=== PATIENT | male | born 1960 | race African-American/Black ===

== ENCOUNTER 2017-05-06 14:03 | Emergency (ER) | payer OTHER ==
[~2017-05-06] VITALS: Ht 182.9 cm; Wt 90.0 kg
[~2017-05-06 14:03] MED LIST: AMLO-512 PO; ASPI81 PO
[2017-05-06 14:05] VITALS: BP 0/0
[2017-05-06] MEDS ORDERED: SODIUM BICARBONATE [ADULT] 8.4% 50 MEQ/50 ML SYRINGE IVP ONE (14:05)
[2017-05-06] MEDS ORDERED: EPINEPHrine 1:10,000 [1 MG/10 ML] SYRINGE IVP ONE (14:05)
[2017-05-06] MEDS ORDERED: ETOMIDATE 2 MG/ML 10 ML VIAL IV ONE (14:05)
[2017-05-06] MEDS ORDERED: SUCCINYLCHOLINE CHLORIDE 20 MG/ML 10 ML VIAL IM ONE (14:05)
[2017-05-06] MEDS ORDERED: CALCIUM CHLORIDE 100 MG/ML 10 ML VIAL IV ONE (14:05)
== END 2017-05-06 19:35 | disposition expired ==
LOC: EMS 14:04
DX: I46.9 Cardiac arrest, cause unspecified (principal); I10 Essential (primary) hypertension; Z91.013 Allergy to seafood
CPT/HCPCS: 31500; 92950; 99285; J0171; J0330; J3490 ×3